=== PATIENT | male | born 1960 | race Two or more races ===

== ENCOUNTER 2021-09-24 08:19 | Outpatient (AMB) | payer OTHER, SELFPAY ==
[2021-09-24 08:30] VITALS: BP 150/82; PULSE 73; TEMP 36.9; BMI 26.5
--- NOTE | 2021-09-24 08:30 | UROVISIT ---
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 Catheter removed by Carisa GUEVARA. Patient to follow up in 6 weeks. mvp Fall Screening Do you have a fear of falling?: No Have you had a fall in the last 2 months?: No Do you use an assistive device for ambulation?: No Current Vital Signs Height Height Method Weight Weight Measurement Method Body Mass Index Temperature Temperature Source 1.73 m Stated 79.095 kg Standing Scale 26.5 98.4 F Temporal Artery Scan 09/24/21 08:30 09/24/21 08:30 09/24/21 08:30 09/24/21 08:30 09/24/21 08:30 09/24/21 08:30 09/24/21 08:30 Pulse Rate Pulse Source Blood Pressure Blood Pressure Source Blood Pressure Location Blood Pressure Position 73 Monitor 150/82 H Automatic Cuff Left Upper Arm Sitting 09/24/21 08:30 09/24/21 08:30 09/24/21 08:30 09/24/21 08:30 09/24/21 08:30 09/24/21 08:30 Nursing Documentation Social History Living Situation History Housing: House Tobacco History Smoking Status: Former smoker Alcohol History Alcohol Intake: Former Office Procedures Uro Level of Care Nursing/Assessment/Reassessment Patient Status: Established Patient Nursing Assessment/Reassessment: Update [facility] data in EMR, Vital Signs and Medication Reconciliation Coordination of Care: Comp Pt/Fam Ed for care Miscellaneous Interventions: Phys Asssit w/procedure Established Patient Point Assignment: 75 Established Patient Point Charge: EP Level 2 (40-75) Procedure IM Injection: No Transrectal Ultrasound: No Urology Clinic Office Visit Office Visit Date of visit:: September 24, 2021 08:19 Allergies & Home Medications: Allergies No Known Allergies Allergy (Verified 09/11/21 09:47) Visit: Reason for visit: [] Office Visit findings: []
--- NOTE | 2021-09-24 15:43 | URONOTEN_ITS ---
RE: DOMINIQUE GOFF : 1960 DATE: 09/24/2021 CHIEF COMPLAINT: 1. BPH with urinary obstruction and LUTS. 2. Bladder tumor, status post TURBT. 3. Indwelling Daley catheter. HISTORY OF PRESENT ILLNESS: This is a 61-year-old gentleman. This patient had gross hematuria. He was found to have a bladder tumor. He underwent transurethral resection of the bladder tumor on 09/11/2021. The patient has done very well. He has no fever, chills, gross hematuria, dysuria or urinary tract infection. The patient is a known case of hypertension, is being followed by PCP. Past medical history, family history, review of systems, personal history, please refer to patient history form dated 09/24/2021. It is in HPI, in EMR. PHYSICAL EXAMINATION: General: Condition is satisfactory. Orientation x3. HEENT: Normocephalic, atraumatic. Eyes: No anemia or jaundice. Neck: Supple. Trachea is central. Thyroid is not enlarged. Extremities: Revealed no edema, cyanosis or clubbing. Vital Signs: Stable. They are in HPI, in EMR. Chest: Symmetrical. Heart: Regular rate and rhythm. VARIOUS LABS: BUN is 18, creatinine is 1.0, GFR is 60. PSA on 05/01/2021 is 0.5. Urine for cytology had revealed atypical urothelial cells. Pathology report revealed it. Low-grade papillary urothelial carcinoma. Lamina propria is present and not involved. Muscularis propria is present and not involved. Report of this was given to the patient. Discussed with him in great detail. RECOMMENDATIONS: 1. Blue light, white light cystoscopy. 2. Bladder instillation of mitomycin C 40 mg once a week for 6 weeks and then 40 mg once a month for 1 year. His catheter is removed. Post-catheter removal instructions are given to the patient. He still is recommended restricted duty for another week. All above issues were discussed with the patient in great detail. Questions were answered to his satisfaction. He verbalized understanding. DT: 10:00:18 TT: 11:14:00 Ref: - TID: [id number]
== END 2021-09-24 10:23 | disposition home or self-care (01) ==
LOC: HODURO 08:19
PROVIDERS: PCP Internal Medicine; Visit Provider Urology